=== PATIENT | female | born 1980 | race Caucasian/White ===

== ENCOUNTER → 2018-11-24 | Outpatient (CLI) | payer BC ==
--- NOTE | 2018-11-24 17:05 | RAD ---
Pelvic ultrasound, 11/24/2018: HISTORY: Abnormal right ovary. Transabdominal and transvaginal scans were obtained. The uterus is within normal limits in size. There is a normal central uterine echo complex. A small nabothian cyst is present in the cervix. The left ovary measures 2.6 x 1.5 x 1.6 cm. It contains small follicular cysts. There is blood flow in the left ovary. The right ovary is enlarged measuring 6.2 x 3.7 x 4.2 cm. It contains a heterogeneous mass measuring 4 cm in greatest diameter. This has appearance of a solid mass, although a hemorrhagic cyst is also a possibility. There is an adjacent exophytic cyst measuring 3.6 cm in diameter. There is a daughter cyst along the internal wall of this larger cyst suggesting that this is a functional ovarian cyst. There is blood flow in the right ovary. The adnexal structures are otherwise unremarkable. No free fluid is evident in the pelvis. IMPRESSION: 1. Enlarged right ovary containing an exophytic functional cyst as well as a possible solid component as described above. Sonographic follow-up is is suggested to exclude a neoplastic etiology. 2. Normal left ovary. 3. Small nabothian cyst in the cervix. Electronically signed by: Laron Hernandez MD (11/24/2018 5:02 PM) [facility]
== END | disposition home or self-care (01) ==
LOC: US 14:43
PROVIDERS: ATTEND Obstetrics & Gynecology
DX: N83.291 Other ovarian cyst, right side (principal); N88.8 Other specified noninflammatory disorders of cervix uteri
CPT/HCPCS: 76830; 76856

== ENCOUNTER → 2020-12-05 | Outpatient (CLI) | payer BC ==
[2020-12-05 10:37] LABS: BASO % 0 % (0-3); EOS # 0.2 x10^3/uL (0.0-0.7); EOS % 2 % (0-3); HEMATOCRIT 37.6 % (36.0-47.0); HEMOGLOBIN 12.7 g/dL (12.0-15.5); LYMPH # 1.4 x10^3/uL (1.0-4.8); LYMPH % 17 % (24-48); MEAN CORPUSCULAR HEMOGLOBIN 33 pg (25-35); MEAN CORPUSCULAR HGB CONC 34 g/dL (31-37); MEAN CORPUSCULAR VOLUME 98 fL (79-100); MONO # 0.5 x10^3/uL (0.0-1.1); MONO % 6 % (0-9); NEUT # 6.2 x10^3uL (1.8-7.7); NEUT % 76 % (31-73); PLATELET COUNT 229 x10^3/uL (140-400); RED BLOOD COUNT 3.82 x10^6/uL (3.50-5.40); RED CELL DISTRIBUTION WIDTH 12.3 % (11.5-14.5); WHITE BLOOD COUNT 8.2 x10^3/uL (4.0-11.0)
[2020-12-05 11:09] LABS: ALBUMIN 3.3 g/dL (3.4-5.0); ALBUMIN/GLOBULIN RATIO 1.1 (1.0-1.7); CALCIUM 8.2 mg/dL (8.5-10.1); CREATININE 0.8 mg/dL (0.6-1.0); GFR 78.7; POTASSIUM 4.4 mmol/L (3.5-5.1); TOTAL BILIRUBIN 0.5 mg/dL (0.2-1.0); TOTAL PROTEIN 6.4 g/dL (6.4-8.2)
[2020-12-05 14:04] LABS: THYROID STIM HORMONE (TSH) 1.673 uIU/mL (0.358-3.740)
--- NOTE | 2020-12-06 17:57 | RAD ---
DATE: 12/05/2020 EXAM: DIGITAL SCREEN BILAT W/CAD HISTORY: Screening COMPARISON: 05/11/2015 This study was interpreted with the benefit of Computerized Aided Detection (CAD). Breast Density: SCATTERED The breast parenchyma shows scattered fibroglandular densities. Breast parenchyma level B. FINDINGS: No mass, suspicious calcification, or architectural distortion in either breast. IMPRESSION: No evidence of malignancy. BI-RADS CATEGORY: 1 NEGATIVE RECOMMENDED FOLLOW-UP: 12M 12 MONTH FOLLOW-UP PQRS compliance statement: Patient information was entered into a reminder system with a target due date for the next mammogram. Mammography is a sensitive method for finding small breast cancers, but it does not detect them all and is not a substitute for careful clinical examination. A negative mammogram does not negate a clinically suspicious finding and should not result in delay in biopsying a clinically suspicious abnormality. "Our facility is accredited by the [employer] Mammography Program."
== END ==
LOC: MAMMO 08:21
PROVIDERS: ATTEND Physician Assistant
DX: Z12.31 Encounter for screening mammogram for malignant neoplasm of breast (principal); Z00.00 Encounter for general adult medical examination without abnormal findings; I10 Essential (primary) hypertension; F90.0 Attention-deficit hyperactivity disorder, predominantly inattentive type
CPT/HCPCS: 36415; 77067; 80053; 80061; 84443; 85025